=== PATIENT | female | born 1950 | race Caucasian/White ===

== ENCOUNTER 2018-12-31 10:41 | Emergency (ER) | payer OTHER ==
[~2018-12-31] VITALS: Ht 160 cm; Wt 86.2 kg
[2018-12-31 11:28] LABS: ABSOLUTE NEUTROPHILS 2.2 thou/uL (1.4-8.2); BASOPHILS 1.5 % (0.0-2.0); EOSINOPHILS 2.6 % (0.0-3.0); HEMATOCRIT 38.2 % (37.0-47.0); HEMOGLOBIN 12.9 gm/dL (12.0-15.0); LYMPHOCYTES 36.7 % (24.0-44.0); MCH 31.4 pg (26.0-34.0); MCHC 33.7 g/dL (28.0-37.0); MONOCYTES 9.8 % (1.0-8.0); PLATELET COUNT 233 thou/uL (150-400); POLYS 49.4 % (36.0-66.0); RDW 14.1 % (10.5-14.5); WBC 4.5 thou/uL (4.0-11.0)
[2018-12-31 11:39] LABS: ALBUMIN 3.7 g/dL (3.4-5.0); CALCIUM 9.7 mg/dL (8.5-10.1); CREATININE 0.9 mg/dL (0.6-1.0); POTASSIUM 3.7 mmol/L (3.5-5.1); TOTAL BILIRUBIN 0.4 mg/dL (<0.1-1.0); TOTAL PROTEIN 6.6 g/dL (6.4-8.2)
[2018-12-31] MEDS ORDERED: SERTRALINE HCL50 MG PO (11:43)
[2018-12-31] MEDS ORDERED: CITRACAL + BON1 EACH PO (11:43)
[2018-12-31] MEDS ORDERED: KLOR-CON 1010 MEQ PO (11:43)
[2018-12-31] MEDS ORDERED: GLUCOSAMINE HC500 MG PO (11:44)
[2018-12-31] MEDS ORDERED: LASIX 20 MG TAB20 MG PO (11:44)
[2018-12-31] MEDS ORDERED: LISINOPRIL20 MG PO (11:44)
[2018-12-31] MEDS ORDERED: LISINOPRIL40 MG PO (11:44)
[2018-12-31] MEDS ORDERED: ALENDRONATE SOD35 MG PO (11:45)
[2018-12-31] MEDS ORDERED: ASPIR 8181 MG PO (11:45)
[2018-12-31] MEDS ORDERED: AMLODIPINE BESY10 MG PO (11:45)
[2018-12-31 12:19] LABS: URINE BLOOD NEGATIVE (Negative); URINE CLARITY CLEAR; URINE COLOR YELLOW; URINE GLUCOSE-RANDOM* NEGATIVE (Negative); URINE KETONES NEGATIVE (Negative); URINE LEUKOCYTES-REFLEX NEGATIVE (Negative); URINE NITRITE-REFLEX NEGATIVE (Negative); URINE PROTEIN (DIPSTICK) 1+ (Negative); URINE SPECIFIC GRAVITY >= 1.030 (1.005-1.035); URINE UROBILINOGEN 0.2 E.U./dl (0.2-1.0)
[2018-12-31 12:21] LABS: ICTOTEST (BILI CONFIRMATORY) Negative (Negative); URINE BILIRUBIN NEGATIVE (Negative)
[2018-12-31 12:37] LABS: SQUAMOUS >10 Many /LPF (0-3)
[2018-12-31 12:38] LABS: HYALINE CASTS 0-3 Few /LPF (None Seen)
[2018-12-31 12:40] LABS: URINE WBC-REFLEX 0-5 Rare /HPF (0-5)
[2018-12-31 12:41] LABS: CRYSTALS None Seen /LPF (None Seen); URINE RBC 0-2 Rare /HPF (0-2)
[2018-12-31 12:44] LABS: BACTERIA-REFLEX 1-9 Few /HPF (None Seen)
[2018-12-31 15:12] VITALS: BP 126/69
== END 2018-12-31 15:14 | disposition home or self-care (01) ==
LOC: ER 10:41
PROVIDERS: Physician Assistant
DX: R10.31 Right lower quadrant pain (principal); R10.11 Right upper quadrant pain; I10 Essential (primary) hypertension; Z88.5 Allergy status to narcotic agent; Z88.0 Allergy status to penicillin; Z88.2 Allergy status to sulfonamides; Z87.442 Personal history of urinary calculi; Z98.890 Other specified postprocedural states

== ENCOUNTER → 2019-01-13 | Outpatient (CLI) | payer OTHER ==
[~2019-01-13] MED LIST: ALENDRONATE SOD35 MG PO; AMLODIPINE BESY10 MG PO; ASPIR 8181 MG PO; CITRACAL + BON1 EACH PO; GLUCOSAMINE HC500 MG PO; KLOR-CON 1010 MEQ PO; LASIX 20 MG TAB20 MG PO; LISINOPRIL20 MG PO; LISINOPRIL40 MG PO; SERTRALINE HCL50 MG PO
== END ==
LOC: MRI 08:07
DX: K76.89 Other specified diseases of liver (principal); R16.0 Hepatomegaly, not elsewhere classified; D73.89 Other diseases of spleen; I10 Essential (primary) hypertension

== ENCOUNTER → 2021-03-06 | Outpatient (CLI) | payer OTHER | LOC: SJCVC 10:28 | PROVIDERS: ATTEND Internal Medicine | DX: R94.31 Abnormal electrocardiogram [ECG] [EKG] (principal); I48.91 Unspecified atrial fibrillation; E78.5 Hyperlipidemia, unspecified; I12.9 Hypertensive chronic kidney disease with stage 1 through stage 4 chronic kidney disease, or unspecified chronic kidney disease; N18.30 Chronic kidney disease, stage 3 unspecified; E55.9 Vitamin D deficiency, unspecified; R73.09 Other abnormal glucose; Z88.0 Allergy status to penicillin; Z88.2 Allergy status to sulfonamides; Z88.5 Allergy status to narcotic agent; Z79.82 Long term (current) use of aspirin; Z79.899 Other long term (current) drug therapy; Z82.49 Family history of ischemic heart disease and other diseases of the circulatory system ==

== ENCOUNTER → 2021-03-25 | Outpatient (CLI) | payer OTHER | LOC: SJCVCIMAG 07:41 | PROVIDERS: ATTEND Internal Medicine | DX: R94.31 Abnormal electrocardiogram [ECG] [EKG] (principal); I48.91 Unspecified atrial fibrillation; R06.09 Other forms of dyspnea; R53.83 Other fatigue; E78.5 Hyperlipidemia, unspecified; I10 Essential (primary) hypertension; Z79.899 Other long term (current) drug therapy; Z88.0 Allergy status to penicillin; Z88.5 Allergy status to narcotic agent; Z88.2 Allergy status to sulfonamides ==